=== PATIENT | female | born 1950 | race Native Hawaiian/Other Pacific Islander ===

== ENCOUNTER 2018-09-18 20:00 | Emergency (ER) | payer MEDICARE, MEDICAID ==
[~2018-09-18] VITALS: Ht 154.9 cm; Wt 67.3 kg
[2018-09-18 20:02] VITALS: BP 159/92
[2018-09-18 20:16] LABS: GLUCOSE,POINT OF CARE 212 MG/DL (70-110)
[2018-09-18] MEDS ORDERED: ASPI81 PO (20:19)
[2018-09-18] MEDS ORDERED: METF-960 PO (20:19)
[2018-09-18] MEDS ORDERED: CYCL05OE OU (20:19)
[2018-09-18] MEDS ORDERED: OMEG-135 PO (20:19)
[2018-09-18] MEDS ORDERED: GLIM4 PO (20:19)
[2018-09-18] MEDS ORDERED: MULT1TAB70 PO (20:19)
[2018-09-18] MEDS ORDERED: LOSA50TA64 PO (20:19)
[2018-09-18] MEDS ORDERED: CANA100T PO (20:19)
== END 2018-09-18 21:15 | disposition home or self-care (01) ==
LOC: EMS 20:01
DX: S13.4XXA Sprain of ligaments of cervical spine, initial encounter (principal); E11.9 Type 2 diabetes mellitus without complications; I10 Essential (primary) hypertension; Z79.84 Long term (current) use of oral hypoglycemic drugs; Z79.82 Long term (current) use of aspirin; Z88.6 Allergy status to analgesic agent; Z88.5 Allergy status to narcotic agent; Z88.2 Allergy status to sulfonamides; Z88.8 Allergy status to other drugs, medicaments and biological substances; V43.52XA Car driver injured in collision with other type car in traffic accident, initial encounter; Y93.89 Activity, other specified; Y92.89 Other specified places as the place of occurrence of the external cause; Y99.8 Other external cause status